=== PATIENT | female | born 1970 | race Caucasian/White ===

== ENCOUNTER 2016-11-04 20:57 | Emergency (ER) | payer OTHER ==
[~2016-11-04] VITALS: Ht 162.6 cm; Wt 65.8 kg
[2016-11-04 21:07] VITALS: BP 143/85
[2016-11-04] MEDS ORDERED: 0.9 % SODIUM CHLORIDE 10 ML DISP.SYRIN. IV PRN (21:30)
--- NOTE | 2016-11-04 21:36 | PHYS DOC ---
Past History Past Medical History: No Pertinent History Past Surgical History: Other Additional Past Surgical Histo: uterine ablation 2. Smoking: Non-smoker Alcohol Use: None Drug Use: None Adult General Chief Complaint Chief Complaint: PELVIC PAIN HPI HPI Patient is a pleasant 45-year-old otherwise healthy female with no major medical problems other than dysfunctional uterine bleeding as treated with uterine ablation 2. She presents today with right lower quadrant abdominal pain , right flank pain that began at 9 AM this morning. She described as relatively sharp and sudden in onset with some radiating to the suprapubic region. She's never had this quite before. She denies any vaginal bleeding, UTI symptoms, hematuria, vaginal discharge. She denies any back pain, fevers or chills this time. She's had some nausea without vomiting. He says the pain has moved a little bit from the right flank to the right lower region of the lower abdomen. She said her abdominal exam earlier today was extremely painful with the urgent care physician examined her. She denies any trauma, antibiotic use, sick contacts, or handling of raw food poultry or reptiles. Patient's pain is moderate 2 to 3 of 10. She is not taking anything [id number] to treat it. Is not worse with position bowel movements or food. Review of Systems Review of Systems Constitutional: Denies fever or chills [] Eyes: Denies change in visual acuity, redness, or eye pain [] HENT: Denies nasal congestion or sore throat [] Respiratory: Denies cough or shortness of breath [] Cardiovascular: No additional information not addressed in HPI [] GI: sHe has had some abdominal pain without nausea, vomiting, diarrhea or constipation. : Denies dysuria or hematuria [] Musculoskeletal: Denies back pain or joint pain [] Integument: Denies rash or skin lesions [] Neurologic: Denies headache, focal weakness or sensory changes [] Endocrine: Denies polyuria or polydipsia [] Current Medications Current Medications Current Medications Medications (Trade) Dose Ordered Sig/Mattie Start Time Stop Time Status Last Admin Dose Admin Ketorolac Tromethamine (Toradol) 30 mg 1X ONCE 11/04/16 21:30 11/04/16 21:31 UNV Ondansetron HCl (Zofran) 4 mg 1X ONCE 11/04/16 21:30 11/04/16 21:31 UNV Sodium Chloride (Normal Saline Flush) 10 ml QSHIFT PRN 11/04/16 21:30 UNV Allergies Allergies Allergies Coded Allergies Type Severity Reaction Last Updated Verified prochlorperazine Allergy Unknown 11/04/16 Yes Physical Exam Physical Exam Of the vital signs recorded on this chart reviewed by me documented hypertension. Constitutional: Well developed, well nourished, no acute distress, non-toxic appearance. [] HENT: Normocephalic, atraumatic, bilateral external ears normal Eyes: PERRLA, EOMI, conjunctiva normal, no discharge. [] Neck: Normal range of motion, no tenderness, supple, no stridor. [] Cardiovascular:Heart rate regular rhythm, no murmur [] Lungs & Thorax: Bilateral breath sounds clear to auscultation [] Abdomen: sHe has some mild tenderness to the right lower quadrant right flank without a Ordaz's or McBurney's point tenderness palpation there is no Rovsing sign no heeltap no evidence of peritonitis. Patient has no guarding rebound or organomegaly. Skin: Warm, dry, no erythema, no rash. [] Back: No tenderness, no CVA tenderness. [] Extremities: No tenderness, no cyanosis, no clubbing, ROM intact, no edema. [] Neurologic: Alert and oriented X 3, normal motor function, normal sensory function, no focal deficits noted. [] Psychologic: Affect normal, judgement normal, mood normal. [] Current Patient Data Vital Signs Vital Signs Date Time Temp Pulse Resp B/P (MAP) Pulse Ox O2 Delivery O2 Flow Rate FiO2 11/04/16 21:07 98.2 81 20 143/85 (104) 99 Room Air Lab Results Laboratory Tests Test 11/04/16 21:14 11/04/16 21:50 Urine Collection Type Unknown Urine Color Straw Urine Clarity Clear Urine pH 6.5 Urine Specific [place] <=1.005 Urine Protein Neg (NEG-TRACE) Urine Glucose (UA) Neg mg/dL (NEG) Urine Ketones (Stick) Neg mg/dL (NEG) Urine Blood Mod (NEG) Urine Nitrite Neg (NEG) Urine Bilirubin Neg (NEG) Urine Urobilinogen Dipstick 0.2 mg/dL (0.2 mg/dL) Urine Leukocyte Esterase Trace (NEG) Urine RBC Rare /HPF (0-2) Urine WBC Occ /HPF (0-4) Urine Squamous Epithelial Cells Occ /LPF Urine Bacteria 0 /HPF (0-FEW) Urine Test Negative (NEG) White Blood Count 5.6 x10^3/uL (4.0-11.0) Red Blood Count 4.55 x10^6/uL (3.50-5.40) Hemoglobin 13.9 g/dL (12.0-15.5) Hematocrit 41.1 % (36.0-47.0) Mean Corpuscular Volume 90 fL (79-100) Mean Corpuscular Hemoglobin 31 pg (25-35) Mean Corpuscular Hemoglobin Concent 34 g/dL (31-37) Red Cell Distribution Width 13.3 % (11.5-14.5) Platelet Count 229 x10^3/uL (140-400) Neutrophils (%) (Auto) 73 % (31-73) Lymphocytes (%) (Auto) 20 % (24-48) L Monocytes (%) (Auto) 7 % (0-9) Eosinophils (%) (Auto) 0 % (0-3) Basophils (%) (Auto) 0 % (0-3) Neutrophils # (Auto) 4.1 x10^3uL (1.8-7.7) Lymphocytes # (Auto) 1.1 x10^3/uL (1.0-4.8) Monocytes # (Auto) 0.4 x10^3/uL (0.0-1.1) Eosinophils # (Auto) 0.0 x10^3/uL (0.0-0.7) Basophils # (Auto) 0.0 x10^3/uL (0.0-0.2) Sodium Level 140 mmol/L (136-145) Potassium Level 3.8 mmol/L (3.5-5.1) Chloride Level 105 mmol/L (98-107) Carbon Dioxide Level 29 mmol/L (21-32) Anion Gap 6 (6-14) Blood Urea Nitrogen 12 mg/dL (7-20) Creatinine 0.8 mg/dL (0.6-1.0) Estimated GFR (Cockcroft-Gault) 78.3 BUN/Creatinine Ratio 15 (6-20) Glucose Level 86 mg/dL (70-99) Calcium Level 8.9 mg/dL (8.5-10.1) Total Bilirubin 0.7 mg/dL (0.2-1.0) Aspartate Amino Transferase (AST) 16 U/L (15-37) Alanine Aminotransferase (ALT) 26 U/L (14-59) Alkaline Phosphatase 42 U/L (46-116) L Troponin I Quantitative < 0.017 ng/mL (0-0.055) Total Protein 7.8 g/dL (6.4-8.2) Albumin 4.2 g/dL (3.4-5.0) Albumin/Globulin Ratio 1.2 (1.0-1.7) Lipase 118 U/L (73-393) Serum Test, Qualitative Negative (NEG) EKG EKG [] Radiology/Procedures Radiology/Procedures [] IMAGING REPORT Signed PATIENT: MITCH DAMON ACCOUNT: [id number] : 1970 LOCATION: ER AGE: 45 SEX: F EXAM STATUS: PRE ER ORD. PHYSICIAN: MARIA DE JESUS MCKENNA MD REASON: right flank ab pain PROCEDURE: CT ABDOMEN PELVIS WO CONTRAST CT ABDOMEN PELVIS WO CONTRAST dated 11/04/2016 9:37 PM Indication: Right-sided abdominal pain, flank pain lower back pain, nausea today Comparison: No comparison is available. Technique: Contiguous axial imaging of the abdomen and pelvis performed without the administration of IV or oral contrast. One or more of the following individualized dose reduction techniques were utilized for this examination: 1. Automated exposure control 2. Adjustment of the mA and/or kV according to patient size 3. Use of iterative reconstruction technique Findings: Limited images of lung bases are clear. Heart size within normal limits. No pleural or pericardial effusion. Solid abdominal viscera not well evaluated in the absence of contrast material. No focal attenuation abnormality of the liver or spleen. Pancreas, adrenal glands, gallbladder and kidneys are unremarkable. No hydronephrosis. Unopacified GI tract is normal in caliber and contour. No focal bowel wall thickening. No inflammatory stranding in the mesentery. The appendix is not clearly identified. No inflammatory change in the right lower quadrant. No ascites or lymphadenopathy. Images of the pelvis a nondistended urinary bladder. Uterus and adnexa are unremarkable. Small amount of free pelvic fluid. No pelvic adenopathy. Low-density foci at the endocervix, consistent with nabothian cysts. Bone windows show no acute findings. IMPRESSION: 1. No acute abnormality of abdomen or pelvis. 2. The appendix is not clearly identified. No inflammatory stranding in the right lower quadrant. 3. Trace amount of free pelvic fluid, nonspecific. Electronically signed by: Ramone Jay MD (11/04/2016 10:19 PM) [facility] DICTATED AND SIGNED BY: RAMONE JAY MD DATE: 11/04/162206 CC: MARIA DE JESUS MCKENNA MD ~ Course & Med Decision Making Course & Med Decision Making Pertinent Labs and Imaging studies reviewed. (See chart for details) My abdominal pain differential includes but not limited to ectopic , UTI, pyonephritis, cholecystitis, cholelithiasis, pancreatitis, appendicitis, small bowel obstruction, large bowel obstruction, diverticulosis, Diverticulum, intussusception, volvulus, irritable bowel disease, Crohn's or ulcerative colitis, considered upon arrival Patient is not having ectopic she has negative test, she is not having a UTI or pyonephritis as her urine is clear. Patient is on any cholecystitis or cholelithiasis as her gallbladder is normal. Patient has normal lipase her pancreas is normal. Patient's appendix is not clearly visualized but there is no tenderness to palpation in the right lower quadrant concerning for acute appendicitis or peritonitis. There is no inflammatory and inflammation along the area of the bowel in the CT scan. Patient has no evidence of small or large bowel obstruction on CAT scan. Patient evidence of diverticulitis or diverticulosis there is no evidence of intussusception or volvulus or bowel wall thickening. Patient feels markedly better with fluids antiemetics and pain meds here in the emergency department. We talked about the limitations or study although is no obvious signs of adnexal problems like ovarian torsion or cyst that has ruptured causing free fluid in the pelvis. Patient will follow-up with her primary care doctor. Impression abdominal pain unclear etiology, [] Dragon Disclaimer Dragon Disclaimer This chart was dictated in whole or in part using Voice Recognition software in a busy, high-work load, and often noisy Emergency Department environment. It may contain unintended and wholly unrecognized errors or omissions. Departure Departure: Impression: Primary Impression: Abdominal pain Disposition: 01 HOME, SELF-CARE Condition: STABLE Patient Instructions: Abdominal Pain Additional Instructions: Is return for any new or increasing symptoms, localized pain in the right lower quadrant despite treatment, although there is no evidence of appendicitis at this time or an ovarian torsion these 2 entities can develop at any course in time. Please return if you have any questions or concerns. Scripts Ondansetron (ZOFRAN ODT) 8 Mg Tab.rapdis 4 MG PO TID for 5 Days Prov: MARIA DE JESUS MCKENNA MD 11/04/16 Hydrocodone Bit/Acetaminophen (HYDROCODONE-APAP 5-325 ) 1 Each Tablet 1 TAB PO PRN Q6HRS Y for PAIN for 7 Days, #14 TAB 0 Refills Prov: MARIA DE JESUS MCKENNA MD 11/04/16 MARIA DE JESUS MCKENNA MD Nov 04, 2016 21:36
[2016-11-04 21:37] LABS: BILIRUBIN,URINE NEG (NEG); CLARITY,URINE CLEAR; COLOR,URINE STRAW; GLUCOSE,URINE NEG (NEG)
[2016-11-04 21:38] LABS: BACTERIA,URINE 0 /HPF (0-FEW); NITRITE,URINE NEG (NEG); RBC,URINE RARE /HPF (0-2); SQUAMOUS EPITHELIAL CELL,UR OCC /LPF; UROBILINOGEN,URINE 0.2 mg/dL (0.2 mg/dL); WBC,URINE OCC /HPF (0-4)
[2016-11-04 21:39] LABS: U PREG PATIENT NEGATIVE (NEG)
[2016-11-04] MEDS ORDERED: KETOROLAC 30 MG/ML VIAL. IV ONE (21:45)
[2016-11-04] MEDS ORDERED: ONDANSETRON PF 4 MG/2 ML VIAL. IV ONE (21:45)
[2016-11-04] MEDS ORDERED: IV NORMAL SALINE 1,000ML 1,000 ML IV SCH (21:45)
[2016-11-04 22:05] LABS: BASO % 0 % (0-3); EOS % 0 % (0-3); HEMATOCRIT 41.1 % (36.0-47.0); HEMOGLOBIN 13.9 g/dL (12.0-15.5); LYMPH # 1.1 x10^3/uL (1.0-4.8); LYMPH % 20 % (24-48); MEAN CORPUSCULAR HEMOGLOBIN 31 pg (25-35); MEAN CORPUSCULAR HGB CONC 34 g/dL (31-37); MEAN CORPUSCULAR VOLUME 90 fL (79-100); MONO # 0.4 x10^3/uL (0.0-1.1); MONO % 7 % (0-9); NEUT # 4.1 x10^3uL (1.8-7.7); NEUT % 73 % (31-73); PLATELET COUNT 229 x10^3/uL (140-400); RED BLOOD COUNT 4.55 x10^6/uL (3.50-5.40); RED CELL DISTRIBUTION WIDTH 13.3 % (11.5-14.5); WHITE BLOOD COUNT 5.6 x10^3/uL (4.0-11.0)
[2016-11-04 22:15] LABS: PREG TEST PT QUAL NEGATIVE (NEG)
[2016-11-04 22:18] LABS: ALBUMIN 4.2 g/dL (3.4-5.0); ALBUMIN/GLOBULIN RATIO 1.2 (1.0-1.7); CALCIUM 8.9 mg/dL (8.5-10.1); CREATININE 0.8 mg/dL (0.6-1.0); GFR 78.3; POTASSIUM 3.8 mmol/L (3.5-5.1); TOTAL BILIRUBIN 0.7 mg/dL (0.2-1.0); TOTAL PROTEIN 7.8 g/dL (6.4-8.2)
--- NOTE | 2016-11-04 22:22 | RAD ---
CT ABDOMEN PELVIS WO CONTRAST dated 11/04/2016 9:37 PM Indication: Right-sided abdominal pain, flank pain lower back pain, nausea today Comparison: No comparison is available. Technique: Contiguous axial imaging of the abdomen and pelvis performed without the administration of IV or oral contrast. One or more of the following individualized dose reduction techniques were utilized for this examination: 1. Automated exposure control 2. Adjustment of the mA and/or kV according to patient size 3. Use of iterative reconstruction technique Findings: Limited images of lung bases are clear. Heart size within normal limits. No pleural or pericardial effusion. Solid abdominal viscera not well evaluated in the absence of contrast material. No focal attenuation abnormality of the liver or spleen. Pancreas, adrenal glands, gallbladder and kidneys are unremarkable. No hydronephrosis. Unopacified GI tract is normal in caliber and contour. No focal bowel wall thickening. No inflammatory stranding in the mesentery. The appendix is not clearly identified. No inflammatory change in the right lower quadrant. No ascites or lymphadenopathy. Images of the pelvis a nondistended urinary bladder. Uterus and adnexa are unremarkable. Small amount of free pelvic fluid. No pelvic adenopathy. Low-density foci at the endocervix, consistent with nabothian cysts. Bone windows show no acute findings. IMPRESSION: 1. No acute abnormality of abdomen or pelvis. 2. The appendix is not clearly identified. No inflammatory stranding in the right lower quadrant. 3. Trace amount of free pelvic fluid, nonspecific. Electronically signed by: Ramone Jay MD (11/04/2016 10:19 PM) [facility]
[2016-11-04] MEDS ORDERED: HYDR-2758 PO (22:45)
[2016-11-04] MEDS ORDERED: ONDA8TAB12 PO (22:45)
== END 2016-11-04 23:06 | disposition home or self-care (01) ==
LOC: ER 20:57
DX: R10.31 Right lower quadrant pain (principal); Z88.8 Allergy status to other drugs, medicaments and biological substances
CPT/HCPCS: 36415; 74176; 80053; 81001; 81025; 83690; 84484; 84703; 85025; 87086; 96361; 96374; 96375; 99285; J1885; J2405; J7030

== ENCOUNTER 2019-05-17 14:05 | Emergency (ER) | payer OTHER ==
[~2019-05-17] VITALS: Ht 162.6 cm; Wt 63.0 kg
[~2019-05-17 14:05] MED LIST: HYDR-2155 PO; ONDA8TAB12 PO
--- NOTE | 2019-05-17 14:56 | RAD ---
FOOT RIGHT 3V, ANKLE RIGHT 3V Clinical Indication: Fall, pain. Comparison: None. Ankle Findings: There is no acute fracture or dislocation. The ankle mortise is intact. There is no ankle joint effusion. There is no soft tissue swelling. Foot findings: There is no acute fracture or dislocation. The bony alignment is normal. Joint spaces are maintained. Mineralization is normal. There is no soft tissue abnormality. IMPRESSION: No acute fracture. Electronically signed by: Parveen Whitt MD (05/17/2019 2:53 PM) [id number]
[2019-05-17 15:09] VITALS: BP 123/72
[2019-05-17] MEDS ORDERED: NAPR-683 PO (15:16)
--- NOTE | 2019-05-17 15:16 | PHYS DOC ---
Past History Past Medical History: No Pertinent History Past Surgical History: Tonsillectomy, Other Additional Past Surgical Histo: RIGHT THUMB, ENDOMETRIOSIS SURGERY Smoking: Non-smoker Alcohol Use: None Drug Use: None Adult General Chief Complaint Chief Complaint: ANKLE PROBLEM [facility] Patient is a 48-year-old female who presents with injury to her right foot and ankle after twisting it while coming down some stairs. Patient states that she has pain with weightbearing at this time. Injury occurred earlier this morning. She denies any other injuries. She rates pain as moderate.[] Review of Systems Review of Systems Constitutional: Denies fever or chills [] Respiratory: Denies cough or shortness of breath [] Cardiovascular: No additional information not addressed in HPI [] Musculoskeletal: Positive right foot and ankle pain pain [] Integument: Denies rash or skin lesions [] Neurologic: Denies headache, focal weakness or sensory changes [] Allergies Allergies Allergies Coded Allergies Type Severity Reaction Last Updated Verified prochlorperazine Allergy Unknown 05/17/19 Yes Physical Exam Physical Exam Constitutional: Well developed, well nourished, no acute distress, non-toxic appearance. [] Cardiovascular:Heart rate regular rhythm, no murmur [] Lungs & Thorax: Bilateral breath sounds clear to auscultation [] Extremities: There is tenderness to palpation around the lateral dorsal aspect of the foot overlying the fourth and fifth metatarsals with mild soft tissue swelling in this area. There is also tenderness around the lateral malleolus. [] Neurologic: Alert and oriented X 3, no focal deficits noted. [] Current Patient Data Vital Signs Vital Signs Date Time Temp Pulse Resp B/P (MAP) Pulse Ox O2 Delivery O2 Flow Rate FiO2 05/17/19 15:09 87 18 123/72 (89) 99 Room Air 05/17/19 14:18 98.1 EKG EKG [] Radiology/Procedures Radiology/Procedures [] Impressions: FOOT RIGHT 3V, ANKLE RIGHT 3V Clinical Indication: Fall, pain. Comparison: None. Ankle Findings: There is no acute fracture or dislocation. The ankle mortise is intact. There is no ankle joint effusion. There is no soft tissue swelling. Foot findings: There is no acute fracture or dislocation. The bony alignment is normal. Joint spaces are maintained. Mineralization is normal. There is no soft tissue abnormality. IMPRESSION: No acute fracture. Electronically signed by: Parveen Whitt MD (05/17/2019 2:53 PM) [id number] Course & Med Decision Making Course & Med Decision Making Pertinent Labs and Imaging studies reviewed. (See chart for details) [] [place]oon Disclaimer Dragon Disclaimer This electronic medical record was generated, in whole or in part, using a voice recognition dictation system. Departure Departure: Impression: Primary Impression: Right foot sprain Disposition: HOME, SELF-CARE Condition: STABLE Referrals: LEA VILLEGAS MD (PCP) Patient Instructions: Foot Sprain Scripts Naproxen (NAPROSYN) 500 Mg Tablet 1 TAB PO BID PRN for PAIN, #20 TAB 0 Refills Prov: MISAEL JONES Jr. DO 05/17/19 Problem Qualifiers Primary Impression: Right foot sprain Encounter type: initial encounter Qualified Codes: S93.601A - Unspecified sprain of right foot, initial encounter MISAEL JONES Jr. DO May 17, 2019 15:16
== END 2019-05-17 15:22 | disposition home or self-care (01) ==
LOC: ER 14:05
DX: S93.601A Unspecified sprain of right foot, initial encounter (principal); Z88.8 Allergy status to other drugs, medicaments and biological substances; X50.1XXA Overexertion from prolonged static or awkward postures, initial encounter; Y93.89 Activity, other specified; Y92.89 Other specified places as the place of occurrence of the external cause; Y99.8 Other external cause status
CPT/HCPCS: 29515; 73610; 73630; 99284